=== PATIENT | female | born 1990 | race Caucasian/White ===

== ENCOUNTER 2020-08-30 14:06 | Emergency (ER) | payer OTHER ==
--- NOTE | 2020-08-30 15:38 | ED Physician Documentation ---
PD HPI HEENT - Stated complaint Stated Complaint: SINUSITIS - Chief complaint Chief Complaint: Heent - History obtained from History obtained from: Patient - Additional information Additional information: Sick for 2 days with sinus pressure and discharge, aches and chills but no measured fevers. No cough. Had a Covid test done yesterday which was negative. She is vaccinated. Review of Systems Constitutional: reports: Sweats Ears: reports: Reviewed and negative Nose: reports: Rhinorrhea / runny nose, Congestion PD PAST MEDICAL HISTORY - Present Medications Home Medications: Ambulatory Orders Medication Instructions Recorded Confirmed Guaifenesin/Pseudoephedrne HCl 1 each PO BID PRN #20 ea 08/30/20 [Mucinex D ER 600-60 mg Tablet] Mometasone Furoate [Nasonex] 1 spray NS BID #1 bottle 08/30/20 - Allergies Allergies/Adverse Reactions: Allergies Allergy/AdvReac Type Severity Reaction Status Date / Time No Known Drug Allergies Allergy Verified 08/30/20 14:22 PD ED PE NORMAL - Vitals Vital signs reviewed: Yes - General General: Alert and oriented X 3, No acute distress - HEENT HEENT: PERRL, EOMI, Other (Mild tenderness over the right maxillary sinus, TMs normal, oropharynx normal.) - Neck Neck: Supple, no meningeal sign, No bony TTP - Cardiac Cardiac: RRR, No murmur - Respiratory Respiratory: No respiratory distress, Clear bilaterally - Abdomen Abdomen: Non tender - Back Back: No CVA TTP, No spinal TTP - Derm Derm: Normal color, Warm and dry - Neuro Neuro: Alert and oriented X 3, Normal speech Results - Vitals Vitals: Vital Signs - 24 hr 08/30/20 08/30/20 14:22 15:44 Temperature 37 C 36.8 C Heart Rate 94 88 Respiratory 18 16 Rate Blood Pressure 123/68 120/60 O2 Saturation 98 98 Oxygen O2 Source Room air PD MEDICAL DECISION MAKING - ED course ED course: 2 days sinus sx. not "severe" Per IDSA guidelines watchful waiting and sx tx advised Departure - Departure Disposition: 01 Home, Self Care Clinical Impression: Viral sinusitis Condition: Good Record reviewed to determine appropriate education?: Yes Instructions: ED Sinusitis Abx Tx Prescriptions: Guaifenesin/Pseudoephedrne HCl [Mucinex D ER 600-60 mg Tablet] 1 each PO BID PRN #20 ea PRN Reason: congestion Mometasone Furoate [Nasonex] 1 spray NS BID #1 bottle Comments: As discussed, per infectious disease Society of [place] guidelines, it is likely that your sinus infection is viral, not bacterial. If you are getting worse over the next 5 days or so or stay sick beyond that please return for reevaluation or anytime if you run a high fever or develop other new or worrisome symptoms. Forms: Activity restrictions, Watchful Waiting Discharge Date/Time: 08/30/20 15:44
[2020-08-30 15:45] VITALS: BP 120/60
== END 2020-08-30 15:44 | disposition home or self-care (01) ==
LOC: ED 14:06
DX: J01.80 Other acute sinusitis (principal)
CPT/HCPCS: 99282; 99283

== ENCOUNTER 2020-11-24 16:54 | Emergency (ER) | payer OTHER ==
--- NOTE | 2020-11-24 17:00 | ED Physician Documentation ---
PD HPI SYNCOPE - Stated complaint Stated Complaint: SYNCOPE - History obtained from History obtained from: Patient, EMS - History of Present Illness Witnessed: Unwitnessed Timing - onset: How many hours ago (she was at work this afternoon and went to bathroom, with normal voiding. Stood up and was feeling lightheaded, tried to grab onto the sink for support but awoke on floor. Vaguely remembers starting to fall and strike head on sink. Mild pain forehead. Feeling okay after, but coworkers called EMS.) Preceding symptoms: Light headed. No: Palpitations, Abdominal pain, Nausea / vomiting Associated symptoms: No: Seizure, Headache, Chest pain, Abdominal pain Recently seen: Clinic (had flu shot yesterday with soreness deltoid today. Did feel a bit of edema generally but no itching nor rash.) Review of Systems Constitutional: denies: Fever, Chills Eyes: denies: Decreased vision Nose: denies: Rhinorrhea / runny nose, Congestion Throat: denies: Sore throat Respiratory: denies: Cough GI: denies: Nausea, Vomiting, Diarrhea, Bloody / black stool : denies: Dysuria, Discharge, Now EGA Skin: denies: Abrasion (s), Laceration (s) Musculoskeletal: denies: Neck pain, Back pain PD PAST MEDICAL HISTORY - Present Medications Home Medications: Ambulatory Orders Medication Instructions Recorded Confirmed Guaifenesin/Pseudoephedrne HCl 1 each PO BID PRN #20 ea 08/30/20 [Mucinex D ER 600-60 mg Tablet] Mometasone Furoate [Nasonex] 1 spray NS BID #1 bottle 08/30/20 - Allergies Allergies/Adverse Reactions: Allergies Allergy/AdvReac Type Severity Reaction Status Date / Time No Known Drug Allergies Allergy Verified 08/30/20 14:22 - Social History Does the pt smoke?: No Smoking Status: Never smoker Does the pt drink ETOH?: No Does the pt have substance abuse?: No - Immunizations Immunizations are current?: Yes - POLST Patient has POLST: No Results - Vitals Vitals: Oxygen O2 Source Room air - Tele (time rhythm occurred) presentation Telemetry / rhythm strip: Rate (80), NSR - Labs Labs: Laboratory Tests 11/24/20 11/24/20 11/24/20 17:21 17:21 17:21 WBC 6.1 RBC 4.23 Hgb 13.0 Hct 39.2 MCV 92.7 MCH 30.7 MCHC 33.2 RDW 13.1 Plt Count 313 MPV 8.3 Neut # (Auto) 4.1 Lymph # (Auto) 1.3 L [place] # (Auto) 0.5 Eos # (Auto) 0.1 Baso # (Auto) 0.1 Absolute Nucleated RBC 0.00 Nucleated RBC % 0.0 Sodium 135 Potassium 3.8 Chloride 104 Carbon Dioxide 26 Anion Gap 5.0 L BUN 12 Creatinine 0.8 Estimated GFR (MDRD) 85 L Glucose 101 H Calcium 8.9 Total Bilirubin 1.0 AST 16 ALT 13 Alkaline Phosphatase 42 Total Protein 6.8 Albumin 4.0 Globulin 2.8 Albumin/Globulin Ratio 1.4 Lipase 42 Serum HCG, Qual NEGATIVE PD MEDICAL DECISION MAKING - ED course Complexity details: reviewed results, re-evaluated patient (feeling okay in ER. Presume some vasovagal sluggishness to postural change after voiding, related to flu vaccine yesterday. Appears well otherwise. I would not predict recurrences and not seeing need for further workup unless persists/recurs. ), considered differential (symptoms do not sound concussive. She had lightheaded feeling and syncope leading to fall. Feeling okay now. ), d/w patient Departure - Departure Disposition: 01 Home, Self Care Clinical Impression: Syncope Qualifiers: Syncope type: vasovagal syncope Qualified Code(s): R55 - Syncope and collapse Forehead contusion Qualifiers: Encounter type: initial encounter Qualified Code(s): S00.83XA - Contusion of other part of head, initial encounter Condition: Stable Record reviewed to determine appropriate education?: Yes Instructions: ED Contusion Scalp, ED Syncope Vasovagal Follow-Up: [facility] [Provider Group] Comments: Your heart rhythm on the monitor as well as blood pressure has been normal while here. Your basic blood tests including blood count and chemistry panel are normal. I presume you had a transient drop in blood pressure leading to the fainting episode. This likely is a side effect of your vaccine from yesterday and would presumably be a transient effect and improve in the next day or 2. Stay well-hydrated with normal eating. Avoid vigorous activity for the next day or 2 but light activity is okay. Tylenol or ibuprofen if needed for mild pains. You do not have concussive symptoms at this point but return to the ER if you have increasing headache, vomiting, confusion, blurred vision or other concerns over the next day or 2. Discharge Date/Time: 11/24/20 18:56
[2020-11-24 17:03] VITALS: BP 116/79
[2020-11-24] MEDS ORDERED: ACETAMINOPHEN 325 MG TABLET PO STA (17:12)
[2020-11-24 17:30] LABS: BASOPHILS # (AUTO) 0.1 10^3/uL (0.0-0.1); EOSINOPHILS # (AUTO) 0.1 10^3/uL (0.0-0.7); EOSINOPHILS % (AUTO) 1.3 %; HCT - HEMATOCRIT 39.2 % (37.0-47.0); LYMPHOCYTES # (AUTO) 1.3 10^3/uL (1.5-3.5); LYMPHOCYTES % (AUTO) 21.7 %; MEAN CORPUSCULAR HEMOGLOBIN 30.7 pg (27.0-31.0); MEAN CORPUSCULAR HGB CONC 33.2 g/dL (32.0-36.0); MEAN CORPUSCULAR VOLUME 92.7 fL (81.0-99.0); MEAN PLATELET VOLUME 8.3 fL (7.9-10.8); MONOCYTES # (AUTO) 0.5 10^3/uL (0.0-1.0); MONOCYTES % (AUTO) 8.9 %; NEUTROPHILS # (AUTO) 4.1 10^3/uL (1.5-6.6); NEUTROPHILS % (AUTO) 66.9 %; PLT - PLATELET COUNT 313 10^3/uL (130-450); RED BLOOD COUNT 4.23 10^6/uL (4.20-5.40); RED CELL DISTRIBUTION WIDTH 13.1 % (12.0-15.0); WHITE BLOOD COUNT 6.1 x10^3/uL (4.8-10.8)
[2020-11-24 17:42] LABS: ALBUMIN/GLOBULIN RATIO 1.4 (1.0-2.2); CALCIUM 8.9 mg/dL (8.5-10.3); CREATININE 0.8 mg/dL (0.4-1.0); POTASSIUM 3.8 mmol/L (3.5-5.0); TOTAL PROTEIN 6.8 g/dL (6.7-8.2)
[2020-11-24 18:16] LABS: HCG,QUALITATIVE BLOOD NEGATIVE
== END 2020-11-24 18:56 | disposition home or self-care (01) ==
LOC: EDUNIT# → ED 16:54
DX: R55 Syncope and collapse (principal); S00.83XA Contusion of other part of head, initial encounter; W18.39XA Other fall on same level, initial encounter; W22.09XA Striking against other stationary object, initial encounter; Y92.89 Other specified places as the place of occurrence of the external cause; Y99.0 Civilian activity done for income or pay
CPT/HCPCS: 36415; 80053; 83690; 84703; 85025; 99284; A9270

== ENCOUNTER 2021-02-22 18:49 | Emergency (ER) | payer OTHER ==
[2021-02-22 19:13] LABS: BASOPHILS # (AUTO) 0.1 10^3/uL (0.0-0.1); BASOPHILS % (AUTO) 1.1 %; EOSINOPHILS # (AUTO) 0.2 10^3/uL (0.0-0.7); EOSINOPHILS % (AUTO) 2.4 %; LYMPHOCYTES % (AUTO) 28.3 %; MEAN CORPUSCULAR HEMOGLOBIN 30.7 pg (27.0-31.0); MEAN CORPUSCULAR HGB CONC 34.1 g/dL (32.0-36.0); MEAN CORPUSCULAR VOLUME 89.9 fL (81.0-99.0); MEAN PLATELET VOLUME 8.6 fL (7.9-10.8); MONOCYTES # (AUTO) 0.5 10^3/uL (0.0-1.0); MONOCYTES % (AUTO) 6.9 %; NEUTROPHILS # (AUTO) 4.3 10^3/uL (1.5-6.6); NEUTROPHILS % (AUTO) 61.2 %; PLT - PLATELET COUNT 353 10^3/uL (130-450); RED BLOOD COUNT 4.56 10^6/uL (4.20-5.40); RED CELL DISTRIBUTION WIDTH 12.9 % (12.0-15.0); WHITE BLOOD COUNT 7.1 x10^3/uL (4.8-10.8)
[2021-02-22] MEDS ORDERED: ONDANSETRON ODT 4 MG TABLET TL STA (19:16)
[2021-02-22] MEDS ORDERED: LOPERAMIDE 2 MG CAPSULE PO STA (19:16)
[2021-02-22] MEDS ORDERED: DICYCLOMINE 10 MG CAPSULE PO STA (19:16)
--- NOTE | 2021-02-22 19:17 | ED Physician Documentation ---
PD HPI ABD PAIN - Stated complaint Stated Complaint: VOM/WEAK/DIARRHEA/BODY ACHES - Chief complaint Chief Complaint: Abd Pain - History obtained from History obtained from: Patient - Additional information Additional information: 30-year-old woman with no major medical issues has had increasing GI problems for the last year or so. She describes a pattern where for 3 days she will vomiting and diarrhea as well as cramps, and then symptom-free intervals. Symptom-free intervals though are decreasing in length of time. She has had no work-up for this and has not tried any medications for this. There is no blood from either end. is unlikely as she is on control. Does not seem to be food or stress related that she can identify. There is no associated marijuana use. Review of Systems Constitutional: denies: Fever, Chills, Weight Loss Respiratory: denies: Dyspnea, Cough GI: denies: Abdominal Swelling, Constipation, Hematemesis, Bloody / black stool PD PAST MEDICAL HISTORY - Past Surgical History Past Surgical History: No - Present Medications Home Medications: Ambulatory Orders Medication Instructions Recorded Confirmed Guaifenesin/Pseudoephedrne HCl 1 each PO BID PRN #20 ea 08/30/20 [Mucinex D ER 600-60 mg Tablet] Mometasone Furoate [Nasonex] 1 spray NS BID #1 bottle 08/30/20 Dicyclomine [Bentyl] 1 - 2 tab PO QID PRN #60 cap 02/22/21 Loperamide [Imodium] 2 mg PO QID PRN #20 cap 02/22/21 Ondansetron Odt [Zofran] 4 mg TL Q6H PRN #20 tablet 02/22/21 - Allergies Allergies/Adverse Reactions: Allergies Allergy/AdvReac Type Severity Reaction Status Date / Time No Known Drug Allergies Allergy Verified 02/22/21 18:59 - Social History Does the pt smoke?: No Smoking Status: Never smoker Does the pt drink ETOH?: No Does the pt have substance abuse?: No - Immunizations Immunizations are current?: Yes - POLST Patient has POLST: No PD ED PE NORMAL - Vitals Vital signs reviewed: Yes - General General: Alert and oriented X 3, No acute distress - Cardiac Cardiac: RRR, No murmur - Abdomen Abdomen: Normal bowel sounds, Soft, Non tender - Neuro Neuro: Alert and oriented X 3, Normal speech Results - Vitals Vitals: Vital Signs - 24 hr 02/22/21 02/22/21 18:53 20:06 Temperature 36.0 C L 36.6 C Heart Rate 77 57 L Respiratory 16 16 Rate Blood Pressure 117/94 H 105/59 L O2 Saturation 98 100 Oxygen O2 Source Room air - Labs Labs: Laboratory Tests 02/22/21 02/22/21 02/22/21 19:01 19:05 19:05 WBC 7.1 RBC 4.56 Hgb 14.0 Hct 41.0 MCV 89.9 MCH 30.7 MCHC 34.1 RDW 12.9 Plt Count 353 MPV 8.6 Neut # (Auto) 4.3 Lymph # (Auto) 2.0 [place] # (Auto) 0.5 Eos # (Auto) 0.2 Baso # (Auto) 0.1 Absolute Nucleated RBC 0.00 Nucleated RBC % 0.0 Sodium 136 Potassium 4.0 Chloride 106 Carbon Dioxide 21 Anion Gap 9.0 BUN 8 Creatinine 0.7 Estimated GFR (MDRD) 100 Glucose 100 Calcium 9.1 Total Bilirubin 0.8 AST 18 ALT 14 Alkaline Phosphatase 52 Total Protein 7.4 Albumin 4.3 Globulin 3.1 Albumin/Globulin Ratio 1.4 Lipase 35 Urine Color YELLOW Urine Clarity CLEAR Urine pH 6.0 Ur Specific [place] >=1.030 H Urine Protein NEGATIVE Urine Glucose (UA) NEGATIVE Urine Ketones NEGATIVE Urine Occult Blood NEGATIVE Urine Nitrite NEGATIVE Urine Bilirubin NEGATIVE Urine Urobilinogen 0.2 (NORMAL) Ur Leukocyte Esterase NEGATIVE Ur Microscopic Review NOT INDICATED Urine Culture Comments NOT INDICATED Urine HCG, Qual NEGATIVE PD MEDICAL DECISION MAKING - ED course ED course: 30-year-old woman with intermittent abdominal complaints, benign examination and labs. Given her description she may have IBS but needs a more thorough work-up to exclude other diagnoses, that said there is no emergency medical condition and she did feel better after the administration of Zofran, dicyclomine and Imodium. Departure - Departure Disposition: 01 Home, Self Care Clinical Impression: Abdominal pain Qualifiers: Abdominal location: generalized Qualified Code(s): R10.84 - Generalized abdominal pain IBS (irritable bowel syndrome) Qualifiers: Irritable bowel syndrome type: with diarrhea Qualified Code(s): K58.0 - Irritable bowel syndrome with diarrhea Condition: Good Record reviewed to determine appropriate education?: Yes Instructions: ED Abdominal Pain Female Non-Specific Abdominal Pain Prescriptions: Dicyclomine [Bentyl] 1 - 2 tab PO QID PRN #60 cap PRN Reason: Abdominal Pain Loperamide [Imodium] 2 mg PO QID PRN #20 cap PRN Reason: Diarrhea Ondansetron Odt [Zofran] 4 mg TL Q6H PRN #20 tablet PRN Reason: Nausea / Vomiting Comments: [place] [facility] [place] Return for new or worsening symptoms. As discussed, I suspect you may have IBS, irritable bowel syndrome, but other possibilities include inflammatory bowel disease and other etiologies such as ulcer. [place], consider referral for gastroen terology consultation and possible upper and lower endoscopy. Discharge Date/Time: 02/22/21 20:07
[2021-02-22 19:24] LABS: ALBUMIN 4.3 g/dL (3.2-5.5); ALBUMIN/GLOBULIN RATIO 1.4 (1.0-2.2); BILIRUBIN,TOTAL 0.8 mg/dL (0.2-1.0); CALCIUM 9.1 mg/dL (8.5-10.3); CREATININE 0.7 mg/dL (0.4-1.0); TOTAL PROTEIN 7.4 g/dL (6.7-8.2)
[2021-02-22 19:35] LABS: BILIRUBIN,URINE NEGATIVE (NEGATIVE); GLUCOSE, URINE (UA) NEGATIVE (NEGATIVE); KETONES,URINE (UA) NEGATIVE (NEGATIVE); LEUKOCYTE ESTERASE, URINE NEGATIVE (NEGATIVE); NITRITE,URINE NEGATIVE (NEGATIVE); OCCULT BLOOD,URINE NEGATIVE (NEGATIVE); PROTEIN,URINE NEGATIVE (NEGATIVE); UROBILINOGEN,URINE 0.2 (NORMAL) E.U./dL (NORMAL)
[2021-02-22 19:38] LABS: CLARITY,URINE CLEAR (CLEAR); HCG UR QUAL NEGATIVE
[2021-02-22 20:07] VITALS: BP 105/59
== END 2021-02-22 20:07 | disposition home or self-care (01) ==
LOC: ED 18:49
DX: K58.0 Irritable bowel syndrome with diarrhea (principal)
CPT/HCPCS: 36415; 80053; 81003; 81025; 83690; 85025; 99283; A9270; Q0162; 81001; 87086

== ENCOUNTER 2021-05-09 13:53 | Emergency (ER) | payer OTHER ==
[2021-05-09] MEDS ORDERED: DEXAMETHASONE 10 MG/ML VIAL PO STA (16:04)
[2021-05-09] MEDS ORDERED: KETOROLAC 60 MG/2 ML VIAL IM STA (16:04)
--- NOTE | 2021-05-09 16:07 | ED Physician Documentation ---
PD HPI BACK PAIN - Stated complaint Stated Complaint: BACK PX - Chief complaint Chief Complaint: Back Pain - History obtained from History obtained from: Patient - History of Present Illness Timing - onset: Yesterday Timing - duration: Days (2) Timing - details: Gradual onset Pain level max: 8 Pain level now: 8 Location: Lower, Right Quality: Pain, Spasm, Similar to prior episodes Associated symptoms: No: Fever, Weakness, Numbness, Incontinent of urine, Unable to urinate, Hematuria, Incontinent of stool Improves with: Rest Worsened by: Movement Contributing factors: Lifting - Additional information Additional information: 30-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 Radiates down the right leg. No loss of bowel or bladder control. 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 Took Tylenol without relief. Worse with movement, worse with sitting or lying flat. Has never had similar symptoms previously. No fevers. No numbness or tingling Review of Systems Constitutional: denies: Fever, Chills Respiratory: denies: Dyspnea, Cough GI: denies: Nausea, Diarrhea : denies: Now EGA Skin: denies: Rash Musculoskeletal: denies: Neck pain Neurologic: denies: Headache PD PAST MEDICAL HISTORY - Past Medical History Past Medical History: Yes Cardiovascular: None Respiratory: None Neuro: None Endocrine/Autoimmune: None GI: None DISTRICT COURT JUDGE: None : None HEENT: None Psych: None Musculoskeletal: None Derm: None - Past Surgical History Past Surgical History: No - Present Medications Home Medications: Ambulatory Orders Medication Instructions Recorded Confirmed Meloxicam [Mobic] 15 mg PO DAILY PRN #20 tablet 05/09/21 Oxycodone HCl/Acetaminophen 1 - 2 each PO Q6H PRN #14 tablet 05/09/21 [Percocet 5-325 mg Tablet] methocarbamoL [Robaxin] 500 mg PO Q6H PRN #20 tablet 05/09/21 methylPREDNISolone [Medrol] 4 mg PO DAILY #1 tab 05/09/21 - Allergies Allergies/Adverse Reactions: Allergies Allergy/AdvReac Type Severity Reaction Status Date / Time No Known Drug Allergies Allergy Verified 05/09/21 14:02 - Social History Does the pt smoke?: No Smoking Status: Never smoker Does the pt drink ETOH?: No Does the pt have substance abuse?: No - Immunizations Immunizations are current?: Yes - POLST Patient has POLST: No PD ED PE NORMAL - Vitals Vital signs reviewed: Yes - General General: Alert and oriented X 3, No acute distress, Well developed/nourished - HEENT HEENT: PERRL, Moist mucous membranes - Neck Neck: Supple, no meningeal sign - Cardiac Cardiac: RRR, Strong equal pulses - Respiratory Respiratory: No respiratory distress, Clear bilaterally - Abdomen Abdomen: Soft, Non tender, Non distended - Back Back: No spinal TTP, Other (No midline tenderness to palpation or percussion. No step-off or deformity) - Derm Derm: Warm and dry - Extremities Extremities: No edema, Other (Normal bilateral lower extremity patellar and ankle jerk reflexes. Normal great toe extension bilaterally. no saddle anesthesi a) - Neuro Neuro: Alert and oriented X 3, No motor deficit, No sensory deficit - Psych Psych: Normal mood, Normal affect Results - Vitals Vitals: Vital Signs - 24 hr 05/09/21 05/09/21 14:03 16:28 Temperature 36.2 C L 37.4 C Heart Rate 105 H 105 H Respiratory 16 16 Rate Blood Pressure 110/93 H 108/67 O2 Saturation 98 99 Oxygen O2 Source Room air PD MEDICAL DECISION MAKING - ED course Complexity details: considered differential (No cauda equina, no spinal epidural abscess, no fracture, no aortic dissection or evidence of aneursym rupture), d/w patient ED course: Patient with what appears to be right-sided sciatica. Will place on anti- inflammatories, steroids and pain medication for home. Encourage gentle stretching. We will have her follow-up with her doctor for further care. No evidence of epidural abscess, cauda equina. No loss of bowel or bladder control. Patient counseled regarding signs and symptoms for which I believe and urgent re-evaluation would be necessary. Patient with good understanding of and agreement to plan and is comfortable going home at this time This document was made in part using voice recognition software. While efforts are made to proofread this document, sound alike and grammatical errors may occur. I am prescribing a short course of short-acting opioid pain medication for this patient. I have reviewed the patients [employer] and no concerning findings were noted. I have discussed that the opioids are for short term therapy only, and will not be refilled from the ED. Departure - Departure Disposition: Home, Self Care Clinical Impression: Back spasm Sciatica Qualifiers: Laterality: right Qualified Code(s): M54.31 - Sciatica, right side Condition: Good Instructions: ED Sciatica Follow-Up: [facility] [Provider Group] - Within 1 week Prescriptions: methylPREDNISolone [Medrol] 4 mg PO DAILY #1 tab Meloxicam [Mobic] 15 mg PO DAILY PRN #20 tablet PRN Reason: pain Oxycodone HCl/Acetaminophen [Percocet 5-325 mg Tablet] 1 - 2 each PO Q6H PRN #14 tablet PRN Reason: pain methocarbamoL [Robaxin] 500 mg PO Q6H PRN #20 tablet PRN Reason: muscle spasm Comments: Please follow-up with your doctor for further care. Return if you worsen. You appear to have sciatica today. Your prescriptions were sent to the [facility] pharmacy, continue to gently stretch her back. I am prescribing a short course of narcotic pain medication for you. These are potentially dangerous and addictive medications that should be used carefully. These medications may constipate you. Take an [id number] stool softener (docusate) twice daily with plenty of water while taking these medications. If you go 24 hours without a bowel movement, take [id number] miralax, per pac kage instructions. Do not drink or drive while taking these medications. If you received narcotic or sedating medications while in the emergency department, do not drive for 24 hours. Store this medication in a safe, secure place and out of reach of children. It is a violation of federal law to give or sell this medication to another person or to use in a manner other than prescribed. The ED will not refill narcotic prescriptions, including prescriptions lost or stolen. To dispose of unwanted medications: 1. [facility] at [address] in [place] has a medication drop box. They accept prescription medications (in pill form) Sunday through Sunday 9:00 a.m. to 5:00 p.m. 2. [facility] accepts prescription medications (in pill form only) for disposal year round. Call for more information. 3. Contact the [facility] for the next [facility] sponsored prescription drug collection event. , [phone], or [phone]; Forms: Activity restrictions
[2021-05-09 16:29] VITALS: BP 108/67
== END 2021-05-09 16:57 | disposition home or self-care (01) ==
LOC: ED 13:53
DX: M54.31 Sciatica, right side (principal)
CPT/HCPCS: 96372; 99282; 99284

== ENCOUNTER 2021-07-23 10:32 | Emergency (ER) | payer OTHER ==
[2021-07-23 11:06] VITALS: BP 108/66
[2021-07-23 11:48] LABS: RAPID STREP SCREEN Negative (Negative)
[2021-07-23 12:28] LABS: B. PARAPERTUSSIS- RESP PCR PAN NOT DETECTED; B. PERTUSSIS- RESP PCR PANEL NOT DETECTED; C. PNEUMONIAE- RESP PCR PANEL NOT DETECTED; CORONAVIRUS 229E-RESP PCR NOT DETECTED; CORONAVIRUS HKU1-RESP PCR NOT DETECTED; CORONAVIRUS NL63-RESP PCR NOT DETECTED; CORONAVIRUS OC43-RESP PCR NOT DETECTED; HUMAN METAPNEUMOVIRUS NOT DETECTED; INFLUENZA A- RESP PCR PANEL NOT DETECTED; INFLUENZA B - RESP PCR PANEL NOT DETECTED; M. PNEUMONIAE- RESP PCR PANEL NOT DETECTED; PARAINFLUENZA VIRUS 1 NOT DETECTED; PARAINFLUENZA VIRUS 2 NOT DETECTED; PARAINFLUENZA VIRUS 3 NOT DETECTED; PARAINFLUENZA VIRUS 4 NOT DETECTED; RHINOVIRUS/ENTEROVIRUS NOT DETECTED; RSV- RESP PCR PANEL NOT DETECTED
[2021-07-23 12:33] LABS: SARS-CoV-2 -RESP PCR PANEL DETECTED
--- NOTE | 2021-07-23 12:57 | ED Physician Documentation ---
PD HPI URI - Stated complaint Stated Complaint: FULL BODY ACHES, HEADACHE, SWEATING - Chief complaint Chief Complaint: General - History obtained from History obtained from: Patient, Family - History of Present Illness Timing - onset: Yesterday Timing duration: Days (2) Timing details: Gradual onset, Still present Associated symptoms: Fever, Nasal congestion, Rhinorrhea, Sore throat (mild), Dry cough (mild), Other (aches to the legs and back) Contributing factors: Other (immunized against COVID) Improves by: Rest, Medication Similar symptoms before: Has not had sx before Recently seen: Not recently seen - Additional information Additional information: 31-year-old Silvia izquierdo has developed myalgias and arthralgias to the lower extremities and back as well as nasal congestion a slight cough mild sore throat. She is immunized against COVID. Review of Systems Constitutional: reports: Chills, Myalgias, Fatigue, Sweats. denies: Fever Eyes: denies: Decreased vision Ears: denies: Ear pain Nose: reports: Rhinorrhea / runny nose, Congestion Throat: reports: Sore throat Cardiac: denies: Chest pain / pressure, Palpitations, Pedal edema, Calf pain Respiratory: reports: Cough. denies: Dyspnea GI: denies: Vomiting, Constipation, Diarrhea : denies: Dysuria, Frequency PD PAST MEDICAL HISTORY - Past Medical History Cardiovascular: None Respiratory: None Neuro: Headaches, Migraines Endocrine/Autoimmune: None GI: GERD PHYSIATRIST: None : None HEENT: None Psych: None Musculoskeletal: Chronic back pain Derm: None - Past Surgical History Past Surgical History: No - Present Medications Home Medications: Ambulatory Orders Medication Instructions Recorded Confirmed Cyclobenzaprine HCl 5 mg PO TID PRN 07/23/21 07/23/21 Diclofenac Sodium [Arthritis Pain 1 applic TOP DAILY PRN 07/23/21 07/23/21 Reliever] Lidocaine [Lidoderm] 1 each TP DAILY PRN 07/23/21 07/23/21 Naproxen 500 mg PO BID PRN 07/23/21 07/23/21 - Allergies Allergies/Adverse Reactions: Allergies Allergy/AdvReac Type Severity Reaction Status Date / Time No Known Drug Allergies Allergy Verified 07/23/21 10:42 - Social History Does the pt smoke?: No Smoking Status: Never smoker Does the pt drink ETOH?: Yes Does the pt have substance abuse?: No - Immunizations Immunizations are current?: Yes - POLST Patient has POLST: No PD ED PE NORMAL - Vitals Vital signs reviewed: Yes (Normal) - General General: Alert and oriented X 3, No acute distress, Well developed/nourished - HEENT HEENT: Atraumatic, PERRL, EOMI, Ears normal, Moist mucous membranes, Dentition benign, Other (Mild erythema to the pharynx left tonsil is larger than the right there is more erythema on the right than the left) - Neck Neck: Supple, no meningeal sign, No bony TTP - Cardiac Cardiac: RRR - Respiratory Respiratory: No respiratory distress, Clear bilaterally - Abdomen Abdomen: Normal bowel sounds, Soft, Non tender, No organomegaly - Back Back: No CVA TTP, No spinal TTP - Derm Derm: Normal color, Warm and dry, No rash - Extremities Extremities: No deformity, No edema - Neuro Neuro: Alert and oriented X 3, bone crusher 2-12 intact, No motor deficit, No sensory deficit, Normal speech Eye Opening: Spontaneous Motor: Obeys Commands Verbal: Oriented GCS Score: 15 - Psych Psych: Normal mood, Normal affect Results - Vitals Vitals: Vital Signs - 24 hr 07/23/21 07/23/21 10:39 11:05 Temperature 36.5 C Heart Rate 96 88 Respiratory 16 18 Rate Blood Pressure 104/62 108/66 O2 Saturation 97 97 Oxygen O2 Source Room air - Labs Labs: Laboratory Tests 07/23/21 07/23/21 11:25 11:25 Nasal Adenovirus (PCR) NOT DETECTED Nasal B. parapertussis DNA (PCR) NOT DETECTED Nasal Coronavir 229E PCR NOT DETECTED Nasal Coronavir HKU1 PCR NOT DETECTED Nasal Coronavir NL63 PCR NOT DETECTED Nasal Coronavir OC43 PCR NOT DETECTED Nasal Enterovir/Rhinovir PCR NOT DETECTED Nasal Influenza B PCR NOT DETECTED Nasal Influenza A PCR NOT DETECTED Nasal Parainfluen 1 PCR NOT DETECTED Nasal Parainfluen 2 PCR NOT DETECTED Nasal Parainfluen 3 PCR NOT DETECTED Nasal Parainfluen 4 PCR NOT DETECTED Nasal RSV (PCR) NOT DETECTED Nasal B.pertussis DNA PCR NOT DETECTED Nasal C.pneumoniae (PCR) NOT DETECTED [place] Human Metapneumo PCR NOT DETECTED Nasal M.pneumoniae (PCR) NOT DETECTED Nasal SARS-CoV-2 (PCR) DETECTED A Group A Strep Rapid Negative PD MEDICAL DECISION MAKING - ED course Complexity details: reviewed results, re-evaluated patient, considered differential, d/w patient, d/w family ED course: 31-year-old female has developed myalgias congestion cough with a positive COVID nasal swab . She does not appear particularly ill and is immunized against COVID. We considered Paxlovid and with shared decision making this was considered unnecessary . Departure - Departure Disposition: 01 Home, Self Care Clinical Impression: COVID Condition: Stable Instructions: COVID-19 [facility], Flu and Cold: Nutrition, Prevention and Treatment Tips Follow-Up: CAMACHO PAULINO PA-C [Primary Care Provider] - Forms: Activity restrictions Discharge Date/Time: 07/23/21 13:06
--- NOTE | 2021-07-26 15:13 | ED Physician Documentation ---
ED Addendum - Addendum Addendum: 07/26/21 15:12 Patient is positive for Group C strep. Will prescribe penicillin. The antibiotic was sent to the [facility] pharmacy. Departure - Departure Disposition: 01 Home, Self Care Clinical Impression: COVID, Group C streptococcal infection Condition: Stable Instructions: COVID-19 [facility], Flu and Cold: Nutrition, Prevention and Treatment Tips Follow-Up: CAMACHO PAULINO PA-C [Primary Care Provider] - Prescriptions: Penicillin V Potassium 500 mg PO Q6HR #40 tablet Forms: Activity restrictions Discharge Date/Time: 07/23/21 13:06
== END 2021-07-23 13:06 | disposition home or self-care (01) ==
LOC: ED 10:32
DX: U07.1 COVID-19 (principal)
CPT/HCPCS: 87070; 87430; 87633; 99282; 99283

== ENCOUNTER 2022-04-05 08:45 | Emergency (ER) | payer OTHER ==
--- NOTE | 2022-04-05 10:13 | ED Physician Documentation ---
PD HPI URI - Stated complaint Stated Complaint: SINUS PRESSURE/COUGHING - Chief complaint Chief Complaint: Resp - History obtained from History obtained from: Patient - History of Present Illness Timing - onset: How many days ago (few) Timing duration: Days (few) Timing details: Gradual onset, Still present Associated symptoms: Sinus pain, Productive cough, Other (left maxillary and upper molars pain left side.). No: Chest pain, Dyspnea Contributing factors: Other (simple uri symptoms last week) Similar symptoms before: No diagnosis Review of Systems Constitutional: reports: Myalgias, Fatigue (for couple of months). denies: Fever, Chills Nose: reports: Congestion, Sinus pressure / pain Throat: reports: Dental pain / toothache (left upper molar). denies: Sore throat Cardiac: denies: Chest pain / pressure Respiratory: reports: Cough. 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 : None HEENT: None Psych: None Musculoskeletal: Chronic back pain Derm: None - Past Surgical History Past Surgical History: No - Present Medications Home Medications: Ambulatory Orders Medication Instructions Recorded Confirmed Amoxicillin 500 mg PO TID #21 cap 04/05/22 Cetirizine [ZyrTEC] 10 mg PO DAILY #15 tablet 04/05/22 - Allergies Allergies/Adverse Reactions: Allergies Allergy/AdvReac Type Severity Reaction Status Date / Time No Known Drug Allergies Allergy Verified 04/05/22 09:02 - Social History Does the pt smoke?: No Smoking Status: Never smoker Does the pt drink ETOH?: Yes Does the pt have substance abuse?: No - Immunizations Immunizations are current?: Yes - POLST Patient has POLST: No PD ED PE NORMAL - Vitals Vital signs reviewed: Yes - General General: Alert and oriented X 3, No acute distress, Well developed/nourished - HEENT HEENT: Ears normal, Pharynx benign - Neck Neck: Supple, no meningeal sign, No adenopathy - Cardiac Cardiac: RRR, No murmur - Respiratory Respiratory: Clear bilaterally - Derm Derm: Normal color, Warm and dry, No rash Results - Vitals Vitals: Oxygen O2 Source Room air - Labs Labs: Laboratory Tests 04/05/22 04/05/22 04/05/22 11:30 11:30 11:30 WBC 6.6 RBC 4.66 Hgb 14.4 Hct 43.6 MCV 93.6 MCH 30.9 MCHC 33.0 RDW 12.7 Plt Count 328 MPV 8.4 Neut # (Auto) 4.0 Lymph # (Auto) 1.6 Bucks # (Auto) 0.6 Eos # (Auto) 0.3 Baso # (Auto) 0.1 Absolute Nucleated RBC 0.00 Nucleated RBC % 0.0 ESR 6 Sodium 139 Potassium 4.2 Chloride 108 Carbon Dioxide 25 Anion Gap 6.0 BUN 12 Creatinine 0.8 Estimated GFR (MDRD) 85 L Glucose 80 Estimat Average Glucose Hemoglobin A1c % Calcium 9.1 Magnesium 2.1 Total Bilirubin 0.9 AST 22 ALT 21 Alkaline Phosphatase 53 Total Protein 7.5 Albumin 4.1 Globulin 3.4 Albumin/Globulin Ratio 1.2 Lipase 47 TSH 04/05/22 04/05/22 11:30 11:30 WBC RBC Hgb Hct MCV MCH MCHC RDW Plt Count MPV Neut # (Auto) Lymph # (Auto) Bucks # (Auto) Eos # (Auto) Baso # (Auto) Absolute Nucleated RBC Nucleated RBC % ESR Sodium Potassium Chloride Carbon Dioxide Anion Gap BUN Creatinine Estimated GFR (MDRD) Glucose Estimat Average Glucose 100 Hemoglobin A1c % 5.1 Calcium Magnesium Total Bilirubin AST ALT Alkaline Phosphatase Total Protein Albumin Globulin Albumin/Globulin Ratio Lipase TSH 1.22 PD Medical Decision Making - ED course Complexity details: reviewed results (discussed with patient to get basic labs to eval for fatigue and malaise. general illness problems could be impacting her menses and thus irregular, or could be separate problem. ), considered differential (here today mainly for sinus pressure, drainage, and sore throat. However also brings up complaint of general fatigue and malaise and irregular menses (steady spotting or bleeding for over a month)), d/w patient ED course: had had uri symptoms last week and was improving, and now with sinus pressure, purulent nasal discharge, and left maxillary pressure with upper molar teeth aching. sounds like sinus infection at this point, with the upper teeth pain being the most indicative of a bacterial sinusitis. Departure - Departure Disposition: 01 Home, Self Care Clinical Impression: Fatigue, Irregular menstrual cycle Acute sinusitis Qualifiers: Sinusitis location: unspecified location Recurrence: non-recurrent Qualified Code(s): J01.90 - Acute sinusitis, unspecified Condition: Stable Record reviewed to determine appropriate education?: Yes Instructions: ED Sinusitis Abx Tx Follow-Up: CAMACHO PAULINO PA-C [Primary Care Provider] - Prescriptions: Amoxicillin 500 mg PO TID #21 cap Cetirizine [ZyrTEC] 10 mg PO DAILY #15 tablet Comments: The does sound likely that you have a developing bacterial sinus infection on top of a viral head cold. We can treat this with antibiotics amoxicillin 3 times a day for a week as well as cetirizine antihistamine twice daily for a few days and then once a day for a week or 2. Stay well-hydrated. Tylenol or ibuprofen if needed for pains or fevers. Use saline nasal spray frequently through the day to help unclog the sinus openings in the nasal passage. Recheck if not improving well over the next few days. I sent your prescriptions to the [facility] pharmacy here in [place]. Sorry, yes, we did do some blood test here to evaluate some of the potential causes for fatigue and irregular periods. These will result in the next couple of hours but one of them even later today. They can be evaluated on the patient portal. We will call you with any significant abnormalities. 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 Discharge Date/Time: 04/05/22 11:36
[2022-04-05] MEDS ORDERED: CETIRIZINE 10 MG TABLET PO STA (10:28)
[2022-04-05] MEDS ORDERED: AMOXICILLIN 250 MG CAPSULE PO STA (10:28)
[2022-04-05] MEDS ORDERED: CHERRY SYRUP 10 ML UDC PO ONE (10:28)
[2022-04-05] MEDS ORDERED: DEXAMETHASONE 10 MG/ML VIAL PO STA (10:28)
[2022-04-05] MEDS ORDERED: ACETAMINOPHEN 325 MG TABLET PO STA (10:28)
[2022-04-05 11:32] VITALS: BP 117/60
[2022-04-05 11:37] LABS: BASOPHILS # (AUTO) 0.1 10^3/uL (0.0-0.1); BASOPHILS % (AUTO) 1.4 %; EOSINOPHILS # (AUTO) 0.3 10^3/uL (0.0-0.7); EOSINOPHILS % (AUTO) 4.7 %; HCT - HEMATOCRIT 43.6 % (37.0-47.0); HGB - HEMOGLOBIN 14.4 g/dL (12.0-16.0); LYMPHOCYTES # (AUTO) 1.6 10^3/uL (1.5-3.5); LYMPHOCYTES % (AUTO) 23.5 %; MEAN CORPUSCULAR HEMOGLOBIN 30.9 pg (27.0-31.0); MEAN CORPUSCULAR VOLUME 93.6 fL (81.0-99.0); MEAN PLATELET VOLUME 8.4 fL (7.9-10.8); MONOCYTES # (AUTO) 0.6 10^3/uL (0.0-1.0); MONOCYTES % (AUTO) 9.4 %; NEUTROPHILS % (AUTO) 60.8 %; PLT - PLATELET COUNT 328 10^3/uL (130-450); RED BLOOD COUNT 4.66 10^6/uL (4.20-5.40); RED CELL DISTRIBUTION WIDTH 12.7 % (12.0-15.0); WHITE BLOOD COUNT 6.6 x10^3/uL (4.8-10.8)
[2022-04-05 11:48] LABS: ALBUMIN 4.1 g/dL (3.2-5.5); ALBUMIN/GLOBULIN RATIO 1.2 (1.0-2.2); BILIRUBIN,TOTAL 0.9 mg/dL (0.2-1.0); CALCIUM 9.1 mg/dL (8.5-10.3); CREATININE 0.8 mg/dL (0.4-1.0); MAGNESIUM 2.1 mg/dL (1.7-2.8); POTASSIUM 4.2 mmol/L (3.5-5.0); TOTAL PROTEIN 7.5 g/dL (6.7-8.2)
[2022-04-05 12:26] LABS: ESTIMATED AVERAGE GLUCOSE 100 mg/dL (70-100); HEMOGLOBIN A1c% 5.1 % (4.27-6.07)
== END 2022-04-05 11:36 | disposition home or self-care (01) ==
LOC: ED 08:45
DX: J01.90 Acute sinusitis, unspecified (principal); N92.6 Irregular menstruation, unspecified; R53.83 Other fatigue
CPT/HCPCS: 36415; 80053; 83036; 83690; 83735; 84443; 85025; 85651; 99283; A9270

== ENCOUNTER 2023-04-10 12:22 | Emergency (ER) | payer OTHER ==
[2023-04-10 12:48] LABS: BASOPHILS # (AUTO) 0.1 10^3/uL (0.0-0.1); BASOPHILS % (AUTO) 0.3 %; EOSINOPHILS # (AUTO) 0.2 10^3/uL (0.0-0.7); EOSINOPHILS % (AUTO) 1.2 %; HCT - HEMATOCRIT 44.5 % (37.0-47.0); HGB - HEMOGLOBIN 14.6 g/dL (12.0-16.0); LYMPHOCYTES # (AUTO) 1.4 10^3/uL (1.5-3.5); LYMPHOCYTES % (AUTO) 8.3 %; MEAN CORPUSCULAR HEMOGLOBIN 30.7 pg (27.0-31.0); MEAN CORPUSCULAR HGB CONC 32.8 g/dL (32.0-36.0); MEAN CORPUSCULAR VOLUME 93.7 fL (81.0-99.0); MEAN PLATELET VOLUME 8.5 fL (7.9-10.8); MONOCYTES % (AUTO) 6.1 %; NEUTROPHILS # (AUTO) 13.8 10^3/uL (1.5-6.6); NEUTROPHILS % (AUTO) 83.7 %; PLT - PLATELET COUNT 368 10^3/uL (130-450); RED BLOOD COUNT 4.75 10^6/uL (4.20-5.40); RED CELL DISTRIBUTION WIDTH 12.6 % (12.0-15.0); WHITE BLOOD COUNT 16.4 x10^3/uL (4.8-10.8)
[2023-04-10 13:04] LABS: ALBUMIN 4.6 g/dL (3.2-5.5); ALBUMIN/GLOBULIN RATIO 1.6 (1.0-2.2); BILIRUBIN,TOTAL 0.8 mg/dL (0.2-1.0); CALCIUM 9.7 mg/dL (8.5-10.3); CREATININE 0.8 mg/dL (0.6-1.3); POTASSIUM 4.4 mmol/L (3.5-4.5); TOTAL PROTEIN 7.4 g/dL (6.4-8.9)
[2023-04-10 13:30] LABS: BILIRUBIN,URINE NEGATIVE (NEGATIVE); GLUCOSE, URINE (UA) NEGATIVE (NEGATIVE); KETONES,URINE (UA) NEGATIVE (NEGATIVE); LEUKOCYTE ESTERASE, URINE NEGATIVE (NEGATIVE); NITRITE,URINE NEGATIVE (NEGATIVE); OCCULT BLOOD,URINE NEGATIVE (NEGATIVE); PH,URINE 7.5 PH (5.0-7.5); PROTEIN,URINE NEGATIVE (NEGATIVE); UROBILINOGEN,URINE 0.2 (NORMAL) E.U./dL (NORMAL)
[2023-04-10 13:36] LABS: CLARITY,URINE CLEAR (CLEAR)
[2023-04-10 13:45] LABS: HCG,QUALITATIVE BLOOD NEGATIVE
--- NOTE | 2023-04-10 15:14 | ED Physician Documentation ---
PD HPI ABD PAIN - Stated complaint Stated Complaint: ABD PX - Chief complaint Chief Complaint: Abd Pain - History obtained from History obtained from: Patient - History of Present Illness Timing - onset: Today Timing - details: Gradual onset, Still present, Waxing and waning Quality: Cramping, Aching Worsened by: No: Eating, Moving, Breathing Associated symptoms: Nausea. 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 HEENT: None Psych: None Musculoskeletal: Chronic back pain Derm: None - Past Surgical History Past Surgical History: No - Present Medications Home Medications: Ambulatory Orders Medication Instructions Recorded Confirmed No122/Iron/Folic Acid 1 each PO DAILY 04/10/23 04/10/23 [ Multi Tablet] - Allergies Allergies/Adverse Reactions: Allergies Allergy/AdvReac Type Severity Reaction Status Date / Time No Known Drug Allergies Allergy Verified 04/10/23 12:30 - Social History Does the pt smoke?: No Smoking Status: Never smoker Does the pt drink ETOH?: Yes Does the pt have substance abuse?: No - Immunizations Immunizations are current?: Yes - POLST Patient has POLST: No PD ED PE NORMAL - Vitals Vital signs reviewed: Yes - General General: Alert and oriented X 3, No acute distress, Well developed/nourished - HEENT HEENT: Pharynx benign - Neck Neck: Supple, no meningeal sign, No adenopathy - Cardiac Cardiac: RRR, No murmur - Respiratory Respiratory: Clear bilaterally - Abdomen Abdomen: Normal bowel sounds, Soft, Non tender, Non distended Results - Vitals Vitals: Oxygen O2 Source Room air - Labs Labs: Laboratory Tests 04/10/23 04/10/23 04/10/23 12:44 12:44 12:44 WBC 16.4 H RBC 4.75 Hgb 14.6 Hct 44.5 MCV 93.7 MCH 30.7 MCHC 32.8 RDW 12.6 Plt Count 368 MPV 8.5 Neut # (Auto) 13.8 H Lymph # (Auto) 1.4 L Rains # (Auto) 1.0 Eos # (Auto) 0.2 Baso # (Auto) 0.1 Absolute Nucleated RBC 0.00 Nucleated RBC % 0.0 Sodium 138 Potassium 4.4 Chloride 104 Carbon Dioxide 29 Anion Gap 5.0 L BUN 16 Creatinine 0.8 Estimated GFR (MDRD) 84 L Glucose 98 Calcium 9.7 Total Bilirubin 0.8 AST 17 ALT 16 Alkaline Phosphatase 53 Total Protein 7.4 Albumin 4.6 Globulin 2.8 Albumin/Globulin Ratio 1.6 Lipase 43 Serum HCG, Qual NEGATIVE Urine Color Urine Clarity Urine pH Ur Specific [place] Urine Protein Urine Glucose (UA) Urine Ketones Urine Occult Blood Urine Nitrite Urine Bilirubin Urine Urobilinogen Ur Leukocyte Esterase Ur Microscopic Review Urine Culture Comments 04/10/23 13:23 WBC RBC Hgb Hct MCV MCH MCHC RDW Plt Count MPV Neut # (Auto) Lymph # (Auto) Rains # (Auto) Eos # (Auto) Baso # (Auto) Absolute Nucleated RBC Nucleated RBC % Sodium Potassium Chloride Carbon Dioxide Anion Gap BUN Creatinine Estimated GFR (MDRD) Glucose Calcium Total Bilirubin AST ALT Alkaline Phosphatase Total Protein Albumin Globulin Albumin/Globulin Ratio Lipase Serum HCG, Qual Urine Color YELLOW Urine Clarity CLEAR Urine pH 7.5 Ur Specific [place] 1.020 Urine Protein NEGATIVE Urine Glucose (UA) NEGATIVE Urine Ketones NEGATIVE Urine Occult Blood NEGATIVE Urine Nitrite NEGATIVE Urine Bilirubin NEGATIVE Urine Urobilinogen 0.2 (NORMAL) Ur Leukocyte Esterase NEGATIVE Ur Microscopic Review NOT INDICATED Urine Culture Comments NOT INDICATED PD Medical Decision Making - ED course Complexity details: considered differential (no abd pain nor tenderness now and on exam. Basic labs are good. I did not see reason for imaging. Pt cncurs. Pain better.gone here after meds. ), d/w patient Departure - Departure Disposition: 01 Home, Self Care Clinical Impression: Abdominal pain Condition: Stable Record reviewed to determine appropriate education?: Yes Instructions: ED Abdominal Pain Female Non-Specific Abdominal Pain Follow-Up: NANCI Hackett [Provider Group] Comments: Unclear the cause of your pain that you had. It is good that it is resolved at this point and you do not have any areas of tenderness. This would certainly preclude more concerning issues such as appendicitis or diverticulitis or gallbladder infection. Most likely was either a viral type illness or sometimes food related or such with intestinal irritation and increased peristalsis/cramping of the intestine. Hopefully now that its resolved it will stay that way. Antacids or Pepto-Bismol or Tylenol/ibuprofen as needed if you have some cramps continuing. Return if significant pains again. Forms: PCP List Discharge Date/Time: 04/10/23 15:56
[2023-04-10 15:52] VITALS: BP 107/62; O2SAT 100
== END 2023-04-10 15:56 | disposition home or self-care (01) ==
LOC: ED 12:22
DX: R10.9 Unspecified abdominal pain (principal)
CPT/HCPCS: 36415; 80053; 81001; 81003; 83690; 84703; 85025; 87086; 99283; 99284